=== PATIENT | male | born 1995 | race Caucasian/White ===

== ENCOUNTER 2017-11-12 16:02 | Emergency (ER) | payer SELFPAY ==
[~2017-11-12] VITALS: Ht 177.8 cm; Wt 63.6 kg
[~2017-11-12 16:02] MED LIST: LORA-392 PO; Z.0.NO CURRENT MEDS
[2017-11-12 16:04] VITALS: BP 134/84; PULSE 91; RESP 14; TEMP 98.7; O2SAT 97
--- NOTE | 2017-11-12 16:26 | PD ---
HPI Chief Complaint: Cold / Flu Symptoms Time Seen by Provider: 16:20 Travel History International Travel<30 days: No Contact w/Intl Traveler<30days: No Traveled to known affect area: No History of Present Illness HPI 22-year-old male presents to emergency Department with complaint of cough, chest congestion, nasal congestion 1 week. Reports chest tightness and occasional shortness of breath. Denies chest pain. Cough is productive. Denies fevers, sore throat, ear pain, body aches. Denies vomiting, diarrhea, abdominal pain. Others in the house are sick with similar symptoms. Has been using [id number] cold/flu medications for symptom management. Symptoms are mild in severity. No known aggravating or relieving factors. Denies significant loss medical history. No known allergies. No primary care provider. Has no other medical complaints. No other modifying factors or associated signs and symptoms. PFSH Past Medical History ADHD: Yes Bipolar Disorder: Yes Cancer: No Cardiovascular Problems: No Diabetes: No Diminished Hearing: No Headaches: No Psychiatric: Yes (Bipolar Disorder) Immunizations Current: Yes Migraines: No Seizures: No Thyroid Disease: No Ulcer: No Past Surgical History Abdominal Surgery: Yes (11 months old pyloric stenosis) Appendectomy: No Section: No Cholecystectomy: No Other Surgery: Yes (he has surgeory as a baby) Social History Alcohol Use: No Tobacco Use: Yes (1 PPD) Substance Use: Yes (POT) Allergies-Medications (Allergen,Severity, Reaction): Coded Allergies: No Known Allergies (Verified Adverse Reaction, Unknown, 11/12/17) Reported Meds & Prescriptions Reported Meds & Active Scripts Active Deltasone (Prednisone) 20 Mg Tab 40 Mg PO DAILY 4 Days start 11/13/2017 Ventolin Hfa 18 GM Inh (Albuterol Sulfate) 90 Mcg/Act Aer 2 Puff INH Q4-6H PRN Azithromycin 500 Mg Tab 500 Mg PO DAILY Review of Systems Except as stated in HPI: all other systems reviewed are Neg Physical Exam Narrative GENERAL: Well-nourished, well-developed male patient, in no acute distress; afebrile, nontoxic-appearing SKIN: Warm and dry. No rash. HEAD: Atraumatic. Normocephalic. EYES: Pupils equal and round. No scleral icterus. No injection or drainage. ENT: Mucosa pink and moist. No erythema or exudates. No uvular edema. No uvular , palatal, or tonsillar deviation. Airway patent. EARS: Bilateral pinnae and external canals appear within normal limits. Bilateral tympanic membranes without erythema, dullness or perforation. NECK: Trachea midline. No lymphadenopathy. CARDIOVASCULAR: Regular rate and rhythm. No murmur appreciated. RESPIRATORY: No accessory muscle use. Clear to auscultation with decreased lung sounds in bilateral bases. Breath sounds equal bilaterally. No retractions or tachypnea. GASTROINTESTINAL: Abdomen soft, non-tender, nondistended. Hepatic and splenic margins not palpable. Bowel sounds are active 4 quadrants. MUSCULOSKELETAL: No obvious deformities. No clubbing. No cyanosis. No edema. NEUROLOGICAL: Awake and alert. Oriented 3. No obvious cranial nerve deficits. Motor grossly within normal limits. Normal speech. Moves all extremities. 5/5 strength to all extremities. PSYCHIATRIC: Appropriate mood and affect; insight and judgment normal. Data Data Last Documented VS Vital Signs Date Time Temp Pulse Resp B/P (MAP) Pulse Ox O2 Delivery O2 Flow Rate FiO2 11/12/17 17:42 11/12/17 16:04 98.7 91 14 97 Orders Orders Prednisone (Deltasone) (11/12/17 16:30) Albuterol Neb (Albuterol Neb) (11/12/17 16:30) Ed Discharge Order (11/12/17 17:35) [facility] Medical Decision Making Medical Screen Exam Complete: Yes Emergency Medical Condition: Yes Medical Record Reviewed: Yes Differential Diagnosis Bronchitis, pneumonia, upper respiratory infection Narrative Course 22-year-old male with cough and cold symptoms 1 week. Patient is afebrile and nontoxic appearing. Denies fever, vomiting. Lungs are clear and equal with decreased lung sounds in bilateral bases. Patient is in no acute distress. No retractions or tachypnea. Suspecting bronchitis. Deltasone and albuterol nebulizer ordered. 1736: On reexamination the patient reports improvement in symptoms. Lung sounds are clear and equal throughout with improved lung sounds. He denies shortness of breath. Ventolin inhaler, Deltasone, azithromycin prescribed for home. Instructed patient to follow up with primary care provider. Patient verbalizes understanding and agreement with treatment plan. Patient is medically cleared and stable for discharge. Discussed reasons to return to the emergency department. Patient agrees with treatment plan. The patients vital signs are stable and the patient is stable for outpatient follow-up and treatment. Patient discharged home, stable and in no acute distress. Diagnosis Primary Impression: Acute bronchitis Qualified Codes: J20.9 - Acute bronchitis, unspecified Additional Impression: Upper respiratory infection Qualified Codes: J06.9 - Acute upper respiratory infection, unspecified Referrals: [facility] Primary Care Physician Patient Instructions: Acute Bronchitis (ED), General Instructions, Upper Respiratory Infection (ED) Departure Forms: Tests/Procedures, Work Release Enter return to work date: Nov 14, 2017 Additional Instructions: Use Albuterol inhaler as prescribed Take oral steroids as prescribed and complete full course Use Tessalon Perles as prescribed to decrease coughing spasms Udjn-nsg-agvjthc decongestants or antihistamines as directed and as needed for symptom management Your cough can last 4-6 weeks Drink plenty of fluids to prevent dehydration Use hot air humidifier to decrease cough exacerbation Turn off ceiling fans and sleep with head of bed elevated Avoid triggers such as second hand smoke, dust, known allergens Follow-up with your primary care provider Return to the emergency department immediately with worsening of symptoms Med/Other Pt SpecificInfo: Prescription(s) given Scripts Prednisone (Deltasone) 20 Mg Tab 40 MG PO DAILY for 4 Days, #8 TAB 0 Refills start 11/13/2017 Prov: Caitlin CatesP 11/12/17 Albuterol 18 GM Inh (Ventolin Hfa 18 GM Inh) 90 Mcg/Act Aer 2 PUFF INH Q4-6H Y for SOB/WHEEZING, #1 INHALER 0 Refills Prov: Caitlin CatesP 11/12/17 Azithromycin (Azithromycin) 500 Mg Tab 500 MG PO DAILY for Infection, #5 TAB 0 Refills Prov: Caitlin CatesP 11/12/17 Disposition: 01 DISCHARGE HOME Condition: Stable Caitlin Cates Nov 12, 2017 16:26
[2017-11-12] MEDS ORDERED: RESP: ALBUTEROL 2.5 MG/3 ML NEB (SCH) INH ONE (16:30)
[2017-11-12] MEDS ORDERED: predniSONE 20 MG TAB PO ONE (16:30)
[2017-11-12] MEDS ORDERED: VENTAER INH (17:35)
[2017-11-12] MEDS ORDERED: AZIT500T2 PO (17:35)
[2017-11-12] MEDS ORDERED: PRED-503 PO (17:35)
== END 2017-11-12 17:53 | disposition home or self-care (01) ==
LOC: NEPK 16:02
DX: J20.9 Acute bronchitis, unspecified (principal); J06.9 Acute upper respiratory infection, unspecified; F90.9 Attention-deficit hyperactivity disorder, unspecified type; F31.9 Bipolar disorder, unspecified; F17.200 Nicotine dependence, unspecified, uncomplicated; Z79.899 Other long term (current) drug therapy
CPT/HCPCS: 94664; 99284; J7512; J7613

== ENCOUNTER 2018-01-18 18:38 | Emergency (ER) | payer SELFPAY ==
[~2018-01-18] VITALS: Ht 177.8 cm; Wt 65.0 kg
[~2018-01-18 18:38] MED LIST changes: +AZIT500T2 PO; -LORA-392 PO; +PRED-503 PO; +VENTAER INH; -Z.0.NO CURRENT MEDS
[2018-01-18 18:42] VITALS: BP 122/75; PULSE 69; RESP 15; TEMP 98.1; O2SAT 100
[2018-01-18] MEDS ORDERED: oxyCODONE/ACETAMINOPHEN 5 MG/325 MG TAB PO ONE (19:00)
[2018-01-18] MEDS ORDERED: IBUP-232 PO (19:02)
--- NOTE | 2018-01-18 19:02 | PD ---
HPI Chief Complaint: Back/ Neck Pain or Injury Time Seen by Provider: 18:52 Travel History International Travel<30 days: No Contact w/Intl Traveler<30days: No Traveled to known affect area: No History of Present Illness HPI 22-year-old male complains of 1 week of burning pain in the lower back with radiation of pain down the left leg. Pain started when he was working. He reports feeling a pop and then terrible pain worse with palpation. He has difficulty lifting heavy weights on the ground. No fecal or urinary incontinence or bowel bladder change. No numbness tingling the perineal or perianal distribution. No history of immunomodulation. No history of diabetes. No history of cancer. PFSH Past Medical History ADHD: Yes Bipolar Disorder: Yes Weight (Kg): 3 Cancer: No Cardiovascular Problems: No Diabetes: No Diminished Hearing: No Headaches: No Psychiatric: Yes (Bipolar Disorder) Immunizations Current: Yes Migraines: No Seizures: No Thyroid Disease: No Ulcer: No Tetanus Vaccination: < 5 Years Influenza Vaccination: No Past Surgical History Abdominal Surgery: Yes (11 months old pyloric stenosis) Appendectomy: No Section: No Cholecystectomy: No Other Surgery: Yes (he has surgeory as a baby) Social History Alcohol Use: No Tobacco Use: Yes (1 PPD) Substance Use: No (denies) Allergies-Medications (Allergen,Severity, Reaction): Coded Allergies: No Known Allergies (Verified Adverse Reaction, Unknown, 01/18/18) Reported Meds & Prescriptions Reported Meds & Active Scripts Active Ibuprofen 600 Mg Tab 600 Mg PO Q8HR PRN 10 Days Review of Systems Eyes: No: Photophobia HENT: No: Sore Throat Cardiovascular: No: Irregular Rhythm Gastrointestinal: No: Nausea Physical Exam Narrative GENERAL: Well-nourished well-developed 22-year-old male Vital Signs Date Time Temp Pulse Resp B/P (MAP) Pulse Ox O2 Delivery O2 Flow Rate FiO2 01/18/18 18:42 98.1 69 15 122/75 (91) 100 SKIN: Warm and dry. HEAD: Normocephalic. EYES: No scleral icterus. No injection or drainage. NECK: Supple, trachea midline. No JVD or lymphadenopathy. CARDIOVASCULAR: Regular rate and rhythm without murmurs, gallops, or rubs. RESPIRATORY: Breath sounds equal bilaterally. No accessory muscle use. GASTROINTESTINAL: Abdomen soft, non-tender, nondistended. MUSCULOSKELETAL: No cyanosis, or edema. No focus of spinal tenderness. Minimal tenderness overlying the left iliac crest. BACK: Nontender without obvious deformity. No CVA tenderness. NEUROLOGIC: Cranial nerves II through XII normal. There is 2+ patellar tendon reflex bilaterally. Dorsiflexion of the toes is 5/5 bilaterally. Flexion at the ankle and extension at the ankles 5/5 bilaterally. Knee flexion extension 5 /5 bilaterally. Data Data Last Documented VS Vital Signs Date Time Temp Pulse Resp B/P (MAP) Pulse Ox O2 Delivery O2 Flow Rate FiO2 01/18/18 18:42 98.1 69 15 122/75 (91) 100 Orders Orders Oxycodone-Acetamin 5-325 Mg (Percocet (01/18/18 19:00) Ed Discharge Order (01/18/18 19:02) [facility] Medical Decision Making Medical Screen Exam Complete: Yes Emergency Medical Condition: Yes Medical Record Reviewed: Yes Differential Diagnosis Vertebral body fracture, epidural abscess, paraspinal hematoma, aneurysm, osteomyelitis, myofascial strain, osteoarthritis Narrative Course Patient has sciatica possible myofascial strain. Ibuprofen. Work note for 1 week Physical therapy Diagnosis Primary Impression: Low back pain Qualified Codes: M54.40 - Lumbago with sciatica, unspecified side Referrals: Primary Care Physician 2 days Med/Other Pt SpecificInfo: Prescription(s) given Scripts Ibuprofen (Ibuprofen) 600 Mg Tab 600 MG PO Q8HR Y for PAIN SCALE 6 TO 10 for 10 Days, TAB 0 Refills Prov: Shoaib Ruiz MD 01/18/18 Disposition: 01 DISCHARGE HOME Condition: Stable Shoaib Ruiz MD Jan 18, 2018 19:02
== END 2018-01-18 19:50 | disposition home or self-care (01) ==
LOC: NEPD 18:38
DX: M54.32 Sciatica, left side (principal); F90.9 Attention-deficit hyperactivity disorder, unspecified type; F31.9 Bipolar disorder, unspecified; F17.200 Nicotine dependence, unspecified, uncomplicated
CPT/HCPCS: 99283